=== PATIENT | female | born 1990 | race American Indian/Alaskan Native ===

== ENCOUNTER 2018-11-17 17:37 | Emergency (ER) | payer SELFPAY ==
--- NOTE | 2018-11-17 18:26 | EDM.PDOC ---
ED HPI GENERAL MEDICAL PROBLEM - General Stated Complaint: TOOTH PAIN Time Seen by Provider: 11/17/18 18:10 Source of Information: Reports: Patient - History of Present Illness INITIAL COMMENTS - FREE TEXT/NARRATIVE: pt c/o right lower tooth pain X 3 days, denies fever chills swelling or any other concerns. pt is G3 at 17 weeks. ED ROS GENERAL - Review of Systems Review Of Systems: See Below Constitutional: Denies: Fever, Chills Respiratory: Reports: No Symptoms Cardiovascular: Reports: No Symptoms ED EXAM, GENERAL - Physical Exam Exam: See Below Exam Limited By: No Limitations General Appearance: Alert, Mild Distress Throat/Mouth: Other (pt has extenssive dental decay and tendernss over the right lower molars.) Respiratory/Chest: No Respiratory Distress, Lungs Clear, Normal Breath Sounds, No Accessory Muscle Use, Chest Non-Tender Cardiovascular: Normal Peripheral Pulses, Regular Rate, Rhythm, No Edema, No Gallop, No JVD, No Murmur, No Rub Course - Vital Signs Text/Narrative:: Augmentin and few tablets on hydrocodone were prescribed, pt to follow with a dentist. Departure - Departure Time of Disposition: 18:26 Disposition: Home, Self-Care 01 Clinical Impression: Dental infection - Discharge Information Referrals: PCP,None [Primary Care Provider] -
[2018-11-17] MEDS ORDERED: Amoxicillin/Clavulanate K 875-125 MG Tab PO ONE (18:27)
[2018-11-17] MEDS ORDERED: Acetaminophen/HYDROcodone 325-10 MG Tab PO ONE (18:27)
== END 2018-11-17 18:46 | disposition home or self-care (01) ==
LOC: FB.ED 17:37
DX: K04.7 Periapical abscess without sinus (principal)
CPT/HCPCS: 99282; A9270

== ENCOUNTER 2019-02-20 19:11 | Emergency (ER) | payer SELFPAY ==
[2019-02-20] MEDS ORDERED: Amoxicillin 500 MG Cap PO ONE (19:48)
[2019-02-20] MEDS ORDERED: Acetaminophen/HYDROcodone 325-7.5 MG Tab PO ONE (19:49)
--- NOTE | 2019-02-20 19:55 | EDM.PDOC ---
ED HPI GENERAL MEDICAL PROBLEM - General Chief Complaint: ENT Problem Stated Complaint: TOOTH PAIN Time Seen by Provider: 02/20/19 19:32 Source of Information: Reports: Patient History Limitations: Reports: No Limitations - History of Present Illness INITIAL COMMENTS - FREE TEXT/NARRATIVE: 28-year-old female who reports carious right lower tooth for some time and over the past 2 days she reports there has been further deterioration of the posterior molar on the right lower jaw and she has developed increasing pain over this time period as well. She reports the pain is currently a 9/10 and it is throbbing and seems to radiate all over the right side of her head. She is having no trouble swallowing she's had no fever she's had no nausea or vomiting no pleural effusions make the pain better. There is increased pain with chewing and also with cold liquids or air hitting the tooth. Nausea or vomiting. There have been no fevers. She is approximately 25 weeks intrauterine with twins and she reports no change in the movement of the twins and vaginal bleeding or discharge. She is having no abdominal pain. There are no other associated signs or symptoms. There are no other modifying factors. Onset: Other (2 days ago, worsening with time) Duration: Getting Worse Location: Reports: Other (Right lower dental pain) Quality: Reports: Throbbing Severity: Moderate Improves with: Reports: Other Worsens with: Reports: Eating, Other (Otherwise as above) Context: Reports: Other (No linear fractures) Associated Symptoms: Reports: No Other Symptoms Treatments [employer] [employer] [employer]: Reports: Acetaminophen - Related Data Allergies Allergy/AdvReac Type Severity Reaction Status Date / Time No Known Allergies Allergy Verified 02/20/19 19:26 Home Meds: Home Meds PNV95/Ferrous Fumarate/FA [ Tablet] 1 tab PO DAILY 11/17/18 [History] Acetaminophen/HYDROcodone [[place] 325-5 MG] 1 - 2 tab PO Q6H PRN #6 tab 02/20/19 [Rx] Amoxicillin 1,000 mg PO BID #40 tab 02/20/19 [Rx] Ferrous Sulfate [Iron] 325 mg PO TID 02/20/19 [History] Past Medical History - Past Health History Medical/Surgical History: Denies Medical/Surgical History [employer] History: Reports: ( 3 para 2) Other [employer] History: currently 25 weeks with twins. - Past Surgical History Female Surgical History: Reports: Section Social & Family History - Family History Family Medical History: Noncontributory - Tobacco Use Smoking Status *Q: Unknown Ever Smoked (Nonsmoker) - Caffeine Use Caffeine Use: Reports: None - Alcohol Use Alcohol Use History: No ED ROS ENT - Review of Systems Review Of Systems: See Below Constitutional: Reports: No Symptoms HEENT: Reports: Dental Pain Respiratory: Reports: No Symptoms Endocrine: Reports: No Symptoms GI/Abdominal: Reports: No Symptoms : Reports: No Symptoms Musculoskeletal: Reports: No Symptoms Skin: Reports: No Symptoms Neurological: Reports: No Symptoms Hematologic/Lymphatic: Reports: No Symptoms Immunologic: Reports: No Symptoms ED EXAM, ENT - Physical Exam Exam: See Below Exam Limited By: Uncooperative General Appearance: Alert, No Apparent Distress Eye Exam: Bilateral Eye: EOMI, Normal Inspection Ears: Normal External Exam Nose: No Blood Mouth/Throat: Dental Pain, Dental Tenderness Head: Atraumatic, Normocephalic Neck: Normal Inspection, Supple, Non-Tender, Full Range of Motion, Other (No submandibular swelling or tenderness). No: Lymphadenopathy (R), Lymphadenopathy (L) Respiratory/Chest: No Respiratory Distress, Lungs Clear, Normal Breath Sounds, No Accessory Muscle Use, Chest Non-Tender Cardiovascular: Normal Peripheral Pulses, Regular Rate, Rhythm, No Edema, No JVD GI/Abdominal: Normal Bowel Sounds, Soft, Non-Tender, Other (Gravid) Back: Normal Inspection Extremities: Normal Inspection, Normal Range of Motion, Normal Capillary Refill Neurological: Alert, Oriented, CN II-XII Intact, Normal Cognition, No Motor/ Sensory Deficits Psychiatric: Normal Affect Skin: Warm, Dry, Normal Color Lymphatic: No Adenopathy Course - Vital Signs Last Recorded V/S: Last Vital Signs Temp 36.3 C 02/20/19 19:15 Pulse 120 H 02/20/19 19:15 Resp 18 02/20/19 19:15 BP 107/66 02/20/19 19:15 Pulse Ox 98 02/20/19 19:15 - Orders/Labs/Meds Orders: Active Orders 24 hr Category Date Time Status Acetaminophen/HYDROcodone [[place] 325-7.5 MG] Med 02/20/19 19:49 Once 1 tab PO ONETIME ONE Amoxicillin [Amoxil] Med 02/20/19 19:48 Once 1,000 mg PO ONETIME ONE Departure - Departure Time of Disposition: 20:05 Disposition: Home, Self-Care 01 Condition: Good Clinical Impression: Dental abscess, Dental caries - Discharge Information *PRESCRIPTION DRUG MONITORING PROGRAM REVIEWED*: Yes (Patient with small prescriptions of narcotics over the past 6 months 5.) *COPY OF PRESCRIPTION DRUG MONITORING REPORT IN PATIENT BRYCE: No Prescriptions: Acetaminophen/HYDROcodone [[place] 325-5 MG] 1 - 2 tab PO Q6H PRN #6 tab PRN Reason: Moderate to severe pain Amoxicillin 1,000 mg PO BID #40 tab Instructions: Dental Abscess, [id number] Additional Instructions: You need to see a dentist as soon as you can arrange. Medication as prescribed ( amoxicillin 500 mg, hydrocodone 5/325). Back to the emergency department for trouble swallowing, unrelenting vomiting, trouble breathing or any other concerning sign or symptom - My Orders Last 24 Hours: My Active Orders 02/20/19 19:48 Amoxicillin [Amoxil] 1,000 mg PO ONETIME ONE 02/20/19 19:49 Acetaminophen/HYDROcodone [[place] 325-7.5 MG] 1 tab PO ONETIME ONE - Assessment/Plan Last 24 Hours: My Active Orders 02/20/19 19:48 Amoxicillin [Amoxil] 1,000 mg PO ONETIME ONE 02/20/19 19:49 Acetaminophen/HYDROcodone [[place] 325-7.5 MG] 1 tab PO ONETIME ONE
== END 2019-02-20 20:20 | disposition home or self-care (01) ==
LOC: FB.ED 19:11
DX: O99.612 Diseases of the digestive system complicating pregnancy, second trimester (principal); O30.002 Twin pregnancy, unspecified number of placenta and unspecified number of amniotic sacs, second trimester; K04.7 Periapical abscess without sinus; Z3A.25 25 weeks gestation of pregnancy; Z79.899 Other long term (current) drug therapy
CPT/HCPCS: 99282; A9270